=== PATIENT | male | born 1995 | race Caucasian/White ===

== ENCOUNTER 2023-04-05 22:25 | Emergency (ER) | payer OTHER, SELFPAY ==
[2023-04-05 22:26] VITALS: BP 155/103; PULSE 116; RESP 18; TEMP 36.4; O2SAT 99; BMI 37.6
--- NOTE | 2023-04-05 23:19 | EX.ED.GENINJ ---
HPI History of Present Illness Chief Complaint: Laceration PFSH PFSH Allergy/AdvReac Type Severity Reaction Status Date / Time No Known Allergies Allergy Verified 04/05/23 22:26 Social History (Updated 01/02/22 @ 15:27 by Holli Greene) Smoking Status: Unknown if ever smoked Smokeless tobacco user: chewing tobacco EXAM Physical Exam Const Vital Signs: 04/05/23 22:26 Temperature 97.5 F L Temperature Source Temporal Pulse Rate 116 H Respiratory Rate 18 Blood Pressure 155/103 H Blood Pressure Mean 120 Pulse Ox 99 MDM [facility] Narrative Medical decision making narrative: HISTORY OF PRESENT ILLNESS: 27-year-old male here with concern for laceration to left hand. States he was at work when he notes his left hand was caught by a piece of steel causing a cut. He further states tetanus was in 2017. He notes pain to the left palm. No bleeding. No allergies. No decree sensation. REVIEW OF SYSTEMS: Pertinent positives: Left hand laceration Pertinent negatives: Numbness, tingling, loss sensation. PHYSICAL EXAM: Nursing triage notes reviewed, Vital signs reviewed Constitutional: please see mdm Extremities: No edema, intact flexor digitorum profundus and superficialis tendons of the first and second digit. Intact opposition. Neuro: Intact 5/5 strength with ok sign (median), intact finger abduction (ulnar) intact wrist extension (radial n). Intact sensation in the radial, ulnar, and median nerve distributions. Skin: 4 cm linear laceration noted over the thenar eminence of left hand. Bleeding controlled. MEDICAL DECISION MAKING: Chief Complaint: Left hand laceration External records reviewed: No recent advanced imaging of the involved extremity noted Factors affecting care: none Social determinants of health: none History obtained from others: none Consults: none [facility] Narrative: Patient was hemodynamically stable, tachycardic initially. Exam The patient suffered lacerations to the left hand On exam there was no evidence of foreign bodies. There was no evidence of neurovascular injury. Patient had a normal distal vascular exam, and had intact ROM and sensation. There was also no evidence of tendon injury, with normal distal full range of motion, flexion, extension, abduction, abduction. There is no evidence of local joint space involvement at this time. Wound care applied (irrigation and/or local cleansing solution). Laceration repair was then performed please see procedure note. The patient was given signs and symptoms warnings for infection, such as increasing pain, redness, swelling, associated heat, pus or fever. Patient was given instructions for timely follow-up for removal. Patient agreed with the plan of care Procedure: Laceration repair. The procedure was performed by myself. Indication: Wound repair Risks and benefits: risks, benefits and alternatives were discussed Consent: Consent was obtained. Wound Details: [I approximate 4 cm linear laceration noted to the thenar eminence Anesthesia: 1% lidocaine without epi (verbal consent obtained from patient). Wound prep: Patient was prepped and draped in the usual sterile fashion. Tetanus: Up-to-date. No indication for tetanus immunization at this time Irrigation Solution: Saline Wound Preparation: Soaked in chlorhexidine for approximate 15 minutes The wound was explored to its base in a bloodless field. Procedure Description: I applied for simple interrupted 5-0 Chromic Gut sutures with close approximation Patient tolerated the procedure well with no immediate complications The patient and/or family, caregivers express understanding. The patient and/or family, caregivers agrees with the plan. Shared decision making: I will have a discussion with the patient and or visitors regarding risk/benefits of further testing or admission. They will be made aware of of the risk/benefits inherent in this decision they will be given the opportunity to voice understanding. Total critical care time today provided was at least 0 [] minutes. This excludes separately billable procedures. Critical care time (if documented) is secondary to the patient having high probability of clinically significant/life threatening deterioration in the patient's condition which required my urgent intervention. Impression: 1. Left hand laceration 2. Tachycardia Dispo: Discharge Discharge Plan Triage Chief Complaint: Laceration ED Provider: Abdoulaye Houston Dx/Rx/DC Orders Instructions: ED FACIAL LACERATION Suture Tape Stand Alone Forms: ED Work / School Excuse Primary Care Provider: Care Physician,No Primary Referrals: Corporate,Care [Group of Physicians] - Activity Restrictions/Additional Instructions: Thank you for trusting us with your care today! Please take Tylenol (2 pills, 650 mg), ibuprofen (2 pills, 400 mg) every 6 hours as needed for pain and fever control. Please return to the emergency department if your symptoms change or worsen. Specifically develop redness, white-yellow discharge, increased pain. These are signs of infection. Please return immediately if you develop the signs. Please keep your wound covered. Please change dressings daily please do not wet your wound first 24 hours. After the first 24 hours please apply topical antibiotic ointment and peroxide for 48 hours. After this time you should just use soap and water to cleanse your wound. Please follow with your primary care physician for further outpatient evaluation and management. Disposition Disposition: Home, Self Care
[2023-04-06] MEDS: Lidocaine 1% (20 ml mdv) 20 ML Vial 5 ML INFILT (00:02)
[2023-04-06 00:31] VITALS: PULSE 75; RESP 16; O2SAT 99
== END 2023-04-06 00:44 | disposition home or self-care (01) ==
PROVIDERS: Emergency Provider Emergency Medicine; Visit Provider Emergency Medicine
DX: S61.412A Laceration without foreign body of left hand, initial encounter (principal); R00.0 Tachycardia, unspecified; W31.9XXA Contact with unspecified machinery, initial encounter; Y99.0 Civilian activity done for income or pay; Y92.69 Other specified industrial and construction area as the place of occurrence of the external cause
CPT/HCPCS: 12002; 99282